=== PATIENT | female | born 2000 | race African-American/Black ===

== ENCOUNTER 2022-05-14 08:46 | Emergency (ER) | payer BC ==
[~2022-05-14] VITALS: Ht 175.3 cm; Wt 79.0 kg
[2022-05-14 08:53] VITALS: BP 164/98
[2022-05-14] MEDS ORDERED: TOPUD PO (09:36)
== END 2022-05-14 09:49 | disposition home or self-care (01) ==
LOC: ER 08:46
DX: S80.12XA Contusion of left lower leg, initial encounter (principal); S60.221A Contusion of right hand, initial encounter; V43.52XA Car driver injured in collision with other type car in traffic accident, initial encounter; Y93.89 Activity, other specified; Y92.488 Other paved roadways as the place of occurrence of the external cause
CPT/HCPCS: 73120; 73590; 99284